=== PATIENT | male | born 2005 | race African-American/Black ===

== ENCOUNTER 2024-05-02 18:02 | Emergency (ER) | payer BC ==
[~2024-05-02] VITALS: Ht 170.2 cm; Wt 71.0 kg
[2024-05-02 18:24] VITALS: TEMP 36.8; O2SAT 99
[2024-05-02] MEDS ORDERED: CEPH500C2 MT (20:05)
[2024-05-02] MEDS ORDERED: SULF1TAB48 MT (20:05)
[2024-05-02 20:35] VITALS: BP 125/50; PULSE 60; RESP 18; O2SAT 99
== END 2024-05-02 20:35 | disposition home or self-care (01) ==
LOC: ER 18:02
DX: L02.215 Cutaneous abscess of perineum (principal); J45.909 Unspecified asthma, uncomplicated
CPT/HCPCS: 99283